=== PATIENT | male | born 1970 ===

== ENCOUNTER 2018-02-20 12:45 | Emergency (ER) | payer OTHER ==
[2018-02-20 12:57] VITALS: O2SAT 100
--- NOTE | 2018-02-20 13:48 | ED PDOC ---
Lower Extremity Pain/Injury Time Seen by Provider: 02/20/18 13:19 Chief Complaint (Nursing): Lower Extremity Problem/Injury Chief Complaint (Provider): Left Calf Pain History Per: Patient History/Exam Limitations: no limitations Onset/Duration Of Symptoms: Days Current Symptoms Are (Timing): Still Present Additional Complaint(s): 47 year old male presents to the ER for an evaluation of left calf pain onset for 2 weeks. Patient states the pain is now associated with ankle tenderness. He states he works a lot. Denies fever, chills, injury or trauma. Past Medical History Reviewed: Historical Data, Nursing Documentation, Vital Signs Vital Signs: Last Vital Signs Temp 98.7 F 02/20/18 12:55 Pulse 80 02/20/18 12:55 Resp 16 02/20/18 12:55 BP 136/92 H 02/20/18 12:55 Pulse Ox 100 02/20/18 12:55 - Medical History PMH: No Chronic Diseases - Family History Family History: States: Unknown Family Hx - Social History Current smoker - smoking cessation education provided: No Alcohol: None Drugs: Denies - Immunization History Hx Tetanus Toxoid Vaccination: No Hx Influenza Vaccination: No Hx Pneumococcal Vaccination: No - Home Medications Home Medications: Ambulatory Orders Medication Instructions Recorded Ibuprofen [Motrin] 600 mg PO Q8 PRN #21 tab 02/20/18 - Allergies Allergies/Adverse Reactions: Allergies Allergy/AdvReac Type Severity Reaction Status Date / Time No Known Allergies Allergy Verified 02/20/18 12:55 Review of Systems ROS Statement: Except As Marked, All Systems Reviewed And Found Negative Constitutional: Negative for: Fever, Chills Musculoskeletal: Positive for: Leg Pain (left) Psych: Negative for: Suicidal ideation (homicidal ideation ) Physical Exam - Reviewed Nursing Documentation Reviewed: Yes Vital Signs Reviewed: Yes - Physical Exam Appears: Positive for: Non-toxic, No Acute Distress Head Exam: Positive for: ATRAUMATIC, NORMAL INSPECTION, NORMOCEPHALIC Skin: Positive for: Normal Color, Warm, Dry Pulses-Dorsalis Pedis (L): 2+ Pulses-Dorsalis Pedis (R): 2+ Extremity: Positive for: Other (negative justin sign on leg and negative ecchymosis of left medial aspect of left foot with medial malleolus). Negative for: Normal ROM (Pain noted with dorsiflexion and plantar flexion ), Deformity - ECG O2 Sat by Pulse Oximetry: 100 (RA) Pulse Ox Interpretation: Normal - Progress ED Course And Treament: duplex left leg: no dvt xry of tib-fib neg for abnormality xry of ankle: neg for abnormality Medical Decision Making Medical Decision Making: Time: 130 Initial Plan: Ankle Left 3 Views Routine [RAD] Tibia Fibula Left [RAD] Duplex Lower EXTRM Vein Left [US] Duplex Upper EXTRM Vein Left [US] Revaluation Scribe Attestation: Documented by Von Morton, acting as a scribe for Bethany Geronimo PA-C Provider Scribe Attestation: All medical record entries made by the Scribe were at my direction and personally dictated by me. I have reviewed the chart and agree that the record accurately reflects my personal performance of the history, physical exam, medical decision making, and the department course for this patient. I have also personally directed, reviewed, and agree with the discharge instructions and disposition. Disposition - Clinical Impression Clinical Impression: Strain of foot, left, Strain of calf muscle - Patient ED Disposition Is Patient to be Admitted: No - Disposition Referrals: Podiatry Clinic [Outside] Disposition: Routine/Home Disposition Time: 16:33 Condition: FAIR Prescriptions: Ibuprofen [Motrin] 600 mg PO Q8 PRN #21 tab PRN Reason: Pain, Moderate (4-7) Instructions: Muscle Strain (DC) Forms: [facility] ED School/Work Excuse
--- NOTE | 2018-02-20 14:16 | RAD ---
Date of service: 02/20/2018 PROCEDURE: Left Ankle Radiographs. HISTORY: ankle injury COMPARISON: None available. FINDINGS: BONES: No acute fracture or destructive bony lesion identified. JOINTS: Normal. No osteoarthritis. Ankle mortise maintained. Talar dome intact SOFT TISSUES: Normal. OTHER FINDINGS: None. IMPRESSION: Normal left ankle radiographs.
--- NOTE | 2018-02-20 14:16 | RAD ---
Date of service: 02/20/2018 PROCEDURE: Radiographs of the left tibia and fibula. HISTORY: left leg pain COMPARISON: None available. TECHNIQUE: Frontal and lateral views obtained. FINDINGS: BONES: No fracture or destructive lesion. JOINT SPACES: Unremarkable. OTHER FINDINGS: None. IMPRESSION: Unremarkable radiographs of the left tibia and fibula.
--- NOTE | 2018-02-20 16:57 | US ---
Date of service: 02/20/2018 PROCEDURE: LEFT LOWER EXTREMITY VENOUS DOPPLERS HISTORY: r/o dvt COMPARISON: None available. TECHNIQUE: Grayscale and duplex Doppler ultrasound left lower extremity major deep veins is been performed including graded compression and augmentation. FINDINGS: The common and superficial femoral as well as popliteal veins exhibit normal phasic blood flow and morphology with good compressibility and augmentation. No ultrasound evidence of deep venous thrombosis in these structures. Further, the posterior tibial vein appears patent. IMPRESSION: No sonographic evidence to suggest deep venous thrombosis left lower extremity.
[2018-02-20 18:22] VITALS: BP 124/72; PULSE 88; RESP 18; TEMP 98.4
== END 2018-02-20 18:15 | disposition home or self-care (01) ==
LOC: H.ER 12:45
DX: S96.919A Strain of unspecified muscle and tendon at ankle and foot level, unspecified foot, initial encounter (principal)